=== PATIENT | female | born 1985 | race Caucasian/White ===

== ENCOUNTER → 2021-02-06 | Outpatient (CLI) | payer OTHER | LOC: SLEEP 15:08 | DX: G47.33 Obstructive sleep apnea (adult) (pediatric) (principal); Z28.21 Immunization not carried out because of patient refusal; J30.9 Allergic rhinitis, unspecified; F41.9 Anxiety disorder, unspecified; F32.9 Major depressive disorder, single episode, unspecified | CPT/HCPCS: 95810 ==